=== PATIENT | male | born 1990 | race Caucasian/White ===

== ENCOUNTER 2022-11-19 09:56 | Emergency (ER) | payer OTHER, SELFPAY ==
[2022-11-19 10:10] VITALS: BP 114/74; PULSE 95; RESP 14; TEMP 36.7; O2SAT 98; BMI 21.4
--- NOTE | 2022-11-19 11:03 | ED_ITS ---
HPI - General Adult General Time Seen by Provider: 11:03 Date Seen: 11/19/22 Chief complaint: Groin Pain Stated complaint: Body aches,joint pain penile swelling Time Seen by Provider: 11/19/22 10:42 Source: patient Mode of arrival: ambulatory Limitations: no limitations History of Present Illness HPI narrative: Patient is a pleasant 31 year white male has had some good left groin pain and penile redness for the last few days , he has a significant other with him today. He has no other symptoms except occasional joint aching he feels a little bit ?ill? but no other specific concerns. His significant other is a nurse practitioner. They are from [facility] and plans on heading back today. He has had no fevers of any marked degree he is afebrile here. He has history of allergies but he is otherwise quite healthy. Related Data Home Medications Medication Instructions Recorded Confirmed cetirizine 10 mg tablet (24Hour 10 mg PO DAILY 11/19/22 11/19/22 Allergy) Previous Rx's Medication Instructions Recorded azithromycin 500 mg tablet 500 mg PO DAILY 7 days #7 tabs 11/19/22 (Zithromax) Allergies Allergy/AdvReac Type Severity Reaction Status Date / Time amoxicillin Allergy Unknown Rash Verified 11/19/22 10:14 Review of Systems Status of ROS: Reports: 6 or more systems reviewed and unremarkable except as noted in History and below [facility] Social History Smoking Status: Never smoker How often do you have a drink containing alcohol: 2-3 times a week AUDIT-C Alcohol total score: 3 Non-prescribed substance use: denies use Exam Narrative: Exam Narrative: Objective vital signs unremarkable HEENT T is unremarkable he is alert orient x3 Left groin exam shows some mild adenopathy that is slightly tender he has got some redness the penile shaft as well no phimosis or paraphimosis he has got no balanitis. No open wounds or rashes other than the reddened skin. No ascending cellulitic changes Const: Vital Signs, click to edit/add: Vital Signs - 24 hr 11/19/22 10:10 11/19/22 11:45 Temperature 98.1 F 98.1 F Pulse Rate [Pulse Oximeter] 95 95 Respiratory Rate 14 14 Blood Pressure [Ri ght Upper Arm] 114/74 114/74 Pulse Oximetry 98 Oxygen Delivery Me thod Room Air Course Vital Signs Vital signs: Initial Vital Signs Temperature 98.1 F 11/19/22 10:10 Temperature Source Temporal Artery Scan 11/19/22 10:10 Pulse Rate 95 11/19/22 10:10 Pulse Rhythm 11/19/22 10:10 Respiratory Rate 14 11/19/22 10:10 Blood Pressure 114/74 11/19/22 10:10 Blood Pressure Mean 87 11/19/22 10:10 Blood Pressure Position Sitting 11/19/22 10:10 Pulse Oximetry 98 11/19/22 10:10 Oxygen Delivery Method 11/19/22 10:10 Vital Signs Temperature 98.1 F 11/19/22 10:10 Pulse Rate 95 11/19/22 10:10 Respiratory Rate 14 11/19/22 10:10 Blood Pressure 114/74 11/19/22 10:10 Pulse Oximetry 98 11/19/22 10:10 Oxygen Delivery Method 11/19/22 10:10 Temperature 98.1 F 11/19/22 11:45 Pulse Rate 95 11/19/22 11:45 Respiratory Rate 14 11/19/22 11:45 Blood Pressure 114/74 11/19/22 11:45 Pulse Oximetry 98 11/19/22 10:10 Oxygen Delivery Method 11/19/22 10:10 Medical Decision Making MDM Narrative Medical decision making narrative: Patient is a 31-year-old white male with a history of left groin and infection with penile cellulitis at this point the patient appears stable will check his blood counts will give him IM Rocephin and follow that with oral Zithromax 500 mg daily for 7 days. He has penicillin allergy. He should be checked again in 24 hours for reassessment, his significant other is a nurse practitioner can get him checked. If there is questions or concerns they should follow up sooner at this point he does not have much discomfort. He will follow-up tomorrow as mention sooner as needed. He is up-to-date on immunizations Lab Data Labs: Lab Results 11/19/22 11/19/22 Range/Units 11:10 11:10 WBC 12.47 H (4.50-11.00) K/uL RBC 5.15 (4.30-5.90) m/uL Hgb 14.6 (13.5-17.5) gm/dL Hct 43.6 (37.0-53.0) % MCV 85 (80-100) fL MCH 28 (26-34) pg MCHC 34 (32-36) gm/dL RDW Coeff of Ban 12.3 (11.5-15.5) % Plt Count 266 (140-440) K/uL Neut % (Auto) 78.0 H (42.0-72.0) % Lymph % (Auto) 11.5 L (20-44) % [place] % (Auto) 8.5 (0.0-11.0) % Eos % (Auto) 1.4 (0.0-7.0) % Baso % (Auto) 0.4 (0.0-3.0) % Neut # (Auto) 9.70 H (1.7-7.0) K/uL Lymph # (Auto) 1.40 (0.90-2.90) K/uL [place] # (Auto) 1.10 H (0.00-0.90) K/UL Eos # (Auto) 0.20 (0.00-0.50) K/uL Baso # (Auto) 0.00 (0.00-0.30) K/uL Sodium 139 (135-149) mmol/L Potassium 4.2 (3.6-5.1) mmol/L Chloride 107 (96-114) mmol/L Carbon Dioxide 28 (20-32) mmol/L BUN 11 (5-24) mg/dL Creatinine 0.8 (0.5-1.5) mg/dL Estimated Creat Clear 123.32 Estimated GFR 121 ml/min Glucose 100 (60-115) mg/dL Calcium 9.3 (8.4-10.6) mg/dL C-Reactive Protein 5.7 H (0.5-1.0) mg/dL Discharge Plan Discharge Clinical Impression: Cellulitis Patient Disposition: Home w/ Parent or Adult Condition: Stable Additional Instructions: Light activity, recheck in the clinic tomorrow, home antibiotics as planned, return to ED sooner problems or concerns Activity Level: Light activity Discharge Diet: Regular Prescriptions: New azithromycin [Zithromax] 500 mg tablet 500 mg PO DAILY 7 Days Qty: 7 0RF No Action cetirizine [24Hour Allergy] 10 mg tablet 10 mg PO DAILY Stand Alone Forms: [employer] Info Instructions
[2022-11-19] MEDS: cefTRIAXone 1 GM VIAL IM (11:16)
[2022-11-19] MEDS: LIDOCAINE 1% 5 ml (pf) 5 ML VIAL 2.1 ML IM (11:16)
[2022-11-19 11:22] LABS: Basophils Percent Auto 0.4 % (0.0-3.0); Eosinophils Percent Auto 1.4 % (0.0-7.0); Hematocrit 43.6 % (37.0-53.0); Hemoglobin* 14.6 gm/dL (13.5-17.5); Immature Granulocytes Pct Auto 0.2 %; Lymphocytes Percent Auto 11.5 % (20-44); Mean Corpuscular HGB Conc 34 gm/dL (32-36); Mean Corpuscular Hemoglobin 28 pg (26-34); Mean Corpuscular Volume 85 fL (80-100); Monocytes Percent Auto 8.5 % (0.0-11.0); Platelet Count* 266 K/uL (140-440); RDW Coefficient of Variation % 12.3 % (11.5-15.5); Red Blood Count 5.15 m/uL (4.30-5.90); White Blood Count* 12.47 K/uL (4.50-11.00)
[2022-11-19 11:28] LABS: Chloride* 107 mmol/L (96-114); Potassium* 4.2 mmol/L (3.6-5.1); Sodium* 139 mmol/L (135-149)
[2022-11-19 11:31] LABS: Creatinine* 0.8 mg/dL (0.5-1.5); Est. Creatinine Clearance* 123.32; Estimated Glomerular Filt Rate 121 ml/min
[2022-11-19 11:32] LABS: Blood Urea Nitrogen* 11 mg/dL (5-24); Calcium* 9.3 mg/dL (8.4-10.6); Carbon Dioxide* 28 mmol/L (20-32); Glucose* 100 mg/dL (60-115)
[2022-11-19 11:35] LABS: C Reactive Protein* 5.7 mg/dL (0.5-1.0)
[2022-11-19 11:38] LABS: Slide Review Reflex No
[2022-11-19 11:45] VITALS: BP 114/74; PULSE 95; RESP 14; TEMP 36.7
== END 2022-11-19 11:45 | disposition home or self-care (01) ==
LOC: ED 11:35
PROVIDERS: Emergency Provider Family Medicine
DX: L03.314 Cellulitis of groin (principal)
CPT/HCPCS: 36415; 80048; 85025; 86140; 96372; 99284; J0696